=== PATIENT | female | born 1995 | race African-American/Black ===

== ENCOUNTER 2016-11-14 20:29 | Emergency (ER) | payer MEDICAID ==
--- NOTE | 2016-11-14 22:16 | ER Document Report ---
ED Skin Rash/Insect Bite/Abscs - General Mode of Arrival: Ambulatory Information source: Patient TRAVEL OUTSIDE OF THE [place] IN LAST 30 DAYS: No - General Chief Complaint: Wound Infection Stated Complaint: POSSIBLE BELLY BUTTON INFECTION Notes: Patient is a 21-year-old female who presents to the emergency department today with complaints of a bellybutton piercing infection. Patient states she got her belly butotn pierced on 09/23 and she has noticed white discharge from the area over the last few days. Patient states she has "used Dial soap as they told her too" but despite that, she believes it is infected. Patient denies any vomiting or fevers. (LILLI RODRIGUEZ) - Related Data Allergies/Adverse Reactions: No Known Allergies Allergy (Verified 08/24/15 08:46) Past Medical History - General Information source: Patient - Social History Smoking Status: Never Smoker Cigarette use (# per day): No Frequency of alcohol use: None Drug Abuse: None Lives with: Family Family History: Reviewed & Not Pertinent Patient has suicidal ideation: No Patient has homicidal ideation: No Psychiatric Medical History: Reports: Hx Bipolar Disorder, Hx Depression Surgical Hx: Negative - Immunizations Immunizations up to date: Yes Hx Diphtheria, Pertussis, Tetanus Vaccination: No - Medical History Notes: Hx of MR (LILLI RODRIGUEZ) Review of Systems - Review of Systems Constitutional: No symptoms reported EENT: No symptoms reported Cardiovascular: No symptoms reported Respiratory: No symptoms reported Gastrointestinal: No symptoms reported Genitourinary: No symptoms reported Female Genitourinary: No symptoms reported Musculoskeletal: No symptoms reported Skin: See HPI, Rash - around belly button piercing Hematologic/Lymphatic: No symptoms reported Neurological/Psychological: No symptoms reported -: Yes All other systems reviewed and negative Physical Exam - Vital signs Vitals: Temp Pulse Resp BP Pulse Ox 99.1 F 61 18 141/81 H 98 11/14/16 20:36 11/14/16 20:36 11/14/16 20:36 11/14/16 20:36 11/14/16 20:36 - Notes Notes: Physical Exam: General: Alert, appears well. HEENT: Normocephalic. Atraumatic. PERRLA. Extraocular movements intact. Oropharynx clear. Neck: Supple. Respiratory: No respiratory distress. Abdominal: Normal Inspection. No distension. Extremities: Moves all four extremities. Neurological: Cognition at baseline. AAOx4. Normal speech. Psychological: Normal affect. Normal Mood. Skin: Small opening at the umbilicus draining small amount of clear drainage. ( LILLI RODRIGUEZ) Course - Re-evaluation Re-evalutation: 11/15/16 03:45 Patient presents the emergency department after getting her bellybutton pierced last week. She said she took it out today because there is some drainage coming out of it. On examination she is afebrile well-appearing no acute abdominal guarding rebound rigidity she has a small area open at the umbilicus which is slightly draining clear drainage. There is no active abscess cellulitis crepitus necrosis hematoma or pus drainage. Went ahead and start her on Keflex told her to keep the ring out. Follow-up with the family doctor and discussed reasons for ED return sooner (SHELLEY RASHID) - Vital Signs Vital signs: Temp Pulse Resp BP Pulse Ox 98.7 F 68 16 127/86 H 100 11/14/16 22:38 11/14/16 22:38 11/14/16 22:38 11/14/16 22:38 11/14/16 22:38 Discharge - Discharge Clinical Impression: Infected bellybutton piercing Condition: Stable Disposition: HOME, SELF-CARE Additional Instructions: Cellulitis You have an infection of your skin and underlying soft tissues called cellulitis. This is due to bacteria, which can enter through any break in the skin, or even through an irritated hair follicle. Untreated, cellulitis will usually worsen. Antibiotics are required. Usually, warm packs or warm soaks, and elevation of the infected area are recommended. You should start getting better within 24 to 36 hours. Most infections respond quickly to the right medication. Follow-up care is important, however, to check for abscess (boil) formation, unsuspected foreign body, or resistant infection. If you develop fever, chills, or if the area of infection is becoming rapidly more swollen or painful, call the doctor at once. Prescriptions: Cephalexin Monohydrate [Keflex 250 mg Capsule] 250 mg PO Q8 #30 capsule Referrals: [facility] [Provider Group] - Follow up in 3-5 days Scribe Attestation: 11/14/16 22:32 I personally performed the services described in the documentation reviewed the documentation recorded by my scribe in my presence and it accurately and completely records my words and actions (SHELLEY RASHID) Scribe Documentation - Scribe Written by Rakan:: Rakan Church, 11/15/2016 0328 acting as scribe for :: Kem
[2016-11-14] MEDS ORDERED: CEPHALEXIN 500 MG CAPSULE PO ONE (22:33)
[2016-11-14 22:40] VITALS: BP 127/86
== END 2016-11-14 22:40 | disposition home or self-care (01) ==
LOC: ER 20:29
DX: L08.9 Local infection of the skin and subcutaneous tissue, unspecified (principal)
CPT/HCPCS: 99283

== ENCOUNTER 2017-01-15 10:13 | Emergency (ER) | payer MEDICAID ==
--- NOTE | 2017-01-15 11:14 | ER Document Report ---
ED Cardiac - General Mode of Arrival: Ambulatory Information source: Patient TRAVEL OUTSIDE OF THE [place] IN LAST 30 DAYS: No - HPI Patient complains to provider of: Chest pain, Other - racing heart Chest pain location: Substernal Quality of pain: Achy, Throbbing Chest pain radiation location: None Cardiac risk factors: Diabetes - pre-diabetic Associated symptoms: Other - see notes above <TOMA BLUE - Last Filed: 01/15/17 17:04> <ARLETTE FIORE - Last Filed: 01/15/17 21:45> - General Chief Complaint: Chest Tightness Stated Complaint: RAPID HEARTRATE Time Seen by Provider: 01/15/17 10:48 Notes: 21 year old female with history of pre-diabetes presents to the ED complaining of a racing heart that started at 0900 this morning. Patient additionally has throbbing and 'achy' sternal pain with shortness of breath that started towards the end of December 2016. Patient's caregiver explains that the patient has felt this way since getting her flu shot in December 2016. Patient also complains of rhinorrhea, but denies fever or vomiting. Patient denies any seasonal allergies. At this time, the patient explains that her heart is still racing, but not as badly as this morning. (TOMA BLUE) - Related Data Allergies/Adverse Reactions: No Known Allergies Allergy (Verified 01/15/17 10:24) Home Medications: Current Home Medications Fluoride (Sodium) [Prevident 5000 Plus] 51 gm DT BID 01/15/17 [History] Past Medical History - General Information source: Patient - Social History Smoking Status: Never Smoker Chew tobacco use (# tins/day): No Frequency of alcohol use: None Drug Abuse: None Family History: Reviewed & Not Pertinent Patient has suicidal ideation: No - Past Medical History Cardiac Medical History: Denies: Hx Coronary Artery Disease, Hx Heart Attack, Hx Hypertension Pulmonary Medical History: Denies: Hx Asthma, Hx Bronchitis, Hx COPD, Hx Pneumonia Neurological Medical History: Denies: Hx Cerebrovascular Accident, Hx Seizures Renal/ Medical History: Denies: Hx Peritoneal Dialysis Musculoskeltal Medical History: Denies Hx Arthritis Psychiatric Medical History: Reports: Hx Bipolar Disorder, Hx Depression Past Surgical History: Denies: Hx Hysterectomy - Immunizations Immunizations up to date: Yes Hx Diphtheria, Pertussis, Tetanus Vaccination: No <LUKE BLUEUR - Last Filed: 01/15/17 17:04> <ARLETTE FIORE - Last Filed: 01/15/17 21:45> - Medical History Notes: History of IDD. (BLUE,TOMA) Review of Systems - Review of Systems Constitutional: No symptoms reported. denies: Fever EENT: See HPI, Nose discharge Cardiovascular: See HPI, Chest pain - 'achy' sternal, Heart racing Respiratory: No symptoms reported Gastrointestinal: No symptoms reported. denies: Vomiting Genitourinary: No symptoms reported Female Genitourinary: No symptoms reported Musculoskeletal: No symptoms reported Skin: No symptoms reported Hematologic/Lymphatic: No symptoms reported Neurological/Psychological: No symptoms reported <BLUE,TOMA - Last Filed: 01/15/17 17:04> Physical Exam - General General appearance: Alert In distress: None - HEENT Head: Normocephalic, Atraumatic Eyes: Normal Extraocular movements intact: Yes Pupils: PERRL - Respiratory Respiratory status: No respiratory distress Chest status: Nontender Breath sounds: Normal Chest palpation: Normal - Cardiovascular Rhythm: Regular Heart sounds: Normal auscultation Murmur: No Friction rub: No Gallop: None auscultated - Extremities General upper extremity: Normal inspection, Normal ROM General lower extremity: Normal inspection, Normal ROM - Neurological Neuro grossly intact: Yes Cognition: Normal Orientation: AAOx4 [place] Coma Scale Eye Opening: Spontaneous [place] Coma Scale Verbal: Oriented Prabhakar Coma Scale Motor: Obeys Commands Prabhakar Coma Scale Total: 15 Speech: Normal - Psychological Associated symptoms: Normal affect, Normal mood - Skin Skin Temperature: Warm Skin Moisture: Dry Skin Color: Normal <BLUE,TOMA - Last Filed: 01/15/17 17:04> - Vital signs Vitals: Temp Pulse Resp BP Pulse Ox 98.8 F 63 18 127/81 H 100 01/15/17 10:24 01/15/17 10:24 01/15/17 10:24 01/15/17 10:24 01/15/17 10:24 Course - Laboratory Result Diagrams: 01/15/17 11:35 01/15/17 11:35 <BLUETOMA - Last Filed: 01/15/17 17:04> - Laboratory Result Diagrams: 01/15/17 11:35 01/15/17 11:35 <ARLETTE FIORE - Last Filed: 01/15/17 21:45> - Re-evaluation Re-evalutation: 01/15/17 12:24 CBC shows mild anemia with hemoglobin 11.0, this is normal demonstrating female , CMP grossly unremarkable only slightly elevated sodium 146.3, test is negative, lithium level therapeutic at 0.9, EKG nonischemic, no tachycardia. Discussed with patient the need for a Holter monitor as an outpatient, no further testing indicated today, very low suspicion for pulmonary embolism or tachybradycardia syndrome. Patient is discharged home with referral to outpatient cardiology for Holter monitor. (ARLETTE FIORE) - Vital Signs Vital signs: Temp Pulse Resp BP Pulse Ox 98.5 F 69 18 140/88 H 100 01/15/17 12:50 01/15/17 12:50 01/15/17 10:24 01/15/17 12:50 01/15/17 12:50 - Laboratory Laboratory results interpreted by me: 01/15/17 01/15/17 11:35 11:35 Hgb 11.0 L Hct 34.3 L RDW 14.8 H Sodium 146.3 H - EKG Interpretation by Me Additional EKG results interpreted by me: 01/15/17 12:29 EKG shows sinus bradycardia at a rate of 54, normal axis, normal intervals, no ST segment elevations or depressions, no T-wave inversions, no evidence of Brugada syndrome per my interpretation. (ARLETTE FIORE) Discharge <TOMA BLUE - Last Filed: 01/15/17 17:04> <ARLETTE FIORE - Last Filed: 01/15/17 21:45> - Discharge Clinical Impression: Palpitations, Hypertension Condition: Stable Disposition: HOME, SELF-CARE Additional Instructions: Today your EKG was normal, there was no evidence of heartbeat that was too rapid. You also felt like her heartbeat had normalized by the time I saw you. It is very important that you follow-up with [facility] as an outpatient, they may wish to start you on a Holter monitor. This is a 24-48 hour monitor that will watch her heart rate all day, they will have a better chance of catching and irregular heartbeat. Your lithium level was normal. You are not . Please return to the emergency department for any new or concerning symptoms. Forms: Elevated Blood Pressure Referrals: KELLY CAMPOS MD [ACTIVE STAFF] - Follow up as needed Scribe Attestation: 01/15/17 21:44 I personally performed the services described in the documentation, reviewed and edited the documentation which was dictated to the scribe in my presence, and it accurately records my words and actions. (ARLETTE FIORE) Scribe Documentation - Scribe Written by Scribe:: Rakan Borges, 01/15/2017 1210 acting as scribe for :: Ariana <TOMA BLUE - Last Filed: 01/15/17 17:04>
[2017-01-15 11:51] LABS: ABSOLUTE MONOCYTES (AUTO) 0.3 10^3/uL (0.1-1.4); ABSOLUTE NEUT (AUTO) 3.4 10^3/uL (1.7-8.2); BASOPHILS % (AUTO) 0.4 % (0-2); EOSINOPHILS % (AUTO) 0.1 % (0-6); HEMATOCRIT 34.3 % (36.0-47.0); HGB HCT DIFFERENCE -1.3; LYMPHOCYTES % (AUTO) 34.7 % (13-45); MEAN CORPUSCULAR HEMOGLOBIN 27.2 pg (27.0-33.4); MEAN CORPUSCULAR VOLUME 85 fl (80-97); MONOCYTES % (AUTO) 5.9 % (3-13); RED BLOOD COUNT 4.03 10^6/uL (3.72-5.28); RED CELL DISTRIBUTION WIDTH 14.8 % (11.5-14.0); SEGMENTED NEUTROPHILS % (AUTO) 58.9 % (42-78); WHITE BLOOD COUNT 5.8 10^3/uL (4.0-10.5)
[2017-01-15 12:17] LABS: ALANINE AMINOTRANSFERASE 26 U/L (9-52); ALKALINE PHOSPHATASE 88 U/L (38-126); ANION GAP 12 (5-19); ASPARTATE AMINO TRANSFERASE 21 U/L (14-36); BILIRUBIN,DIRECT 0.3 mg/dL (0.0-0.4); BILIRUBIN,TOTAL 0.3 mg/dL (0.2-1.3); BLOOD UREA NITROGEN 8 mg/dL (7-20); CARBON DIOXIDE 28 mmol/L (22-30); CHLORIDE 106 mmol/L (98-107); CREATININE RESULT 0.87 mg/dL (0.52-1.25); GLUCOSE 80 mg/dL (75-110); LITHIUM 0.9 mEq/L (0.6-1.2); POTASSIUM 4.2 mmol/L (3.6-5.0); SODIUM 146.3 mmol/L (137-145); TOTAL PROTEIN 7.2 g/dL (6.3-8.2)
[2017-01-15 12:52] VITALS: BP 140/88
--- NOTE | 2017-01-15 19:47 | EKG REPORT ---
SEVERITY:- NORMAL ECG - SINUS RHYTHM : Confirmed by: Mateusz Olmedo MD 15-Jan-2017 19:46:32
== END 2017-01-15 12:52 | disposition home or self-care (01) ==
LOC: ER 10:13
DX: R00.2 Palpitations (principal); I10 Essential (primary) hypertension; D64.9 Anemia, unspecified; R07.89 Other chest pain; R00.1 Bradycardia, unspecified; R06.02 Shortness of breath; J34.89 Other specified disorders of nose and nasal sinuses
CPT/HCPCS: 36415; 80053; 80178; 84703; 85025; 93005; 93010; 99285

== ENCOUNTER 2017-02-27 13:50 | Emergency (ER) | payer MEDICAID ==
--- NOTE | 2017-02-27 15:00 | ER Document Report ---
ED GI/ - General Chief Complaint: Vaginal Itching Stated Complaint: VAGINAL ITCHING Time Seen by Provider: 02/27/17 14:52 Notes: Patient is a 21-year-old female presents emergency department complaining of vaginal discharge. Patient states that she is sexually active but that she does use protection. Patient states that she is not on control and uses condoms. Patient states that her symptoms started on February 20 as vaginal itching, burning with white discharge. She denies any history of STDs. Otherwise states that she does not think she is . Otherwise denies any history of endometriosis, ovarian cysts. TRAVEL OUTSIDE OF THE [place] IN LAST 30 DAYS: No - Related Data Allergies/Adverse Reactions: No Known Allergies Allergy (Verified 02/27/17 13:56) Past Medical History - Social History Smoking Status: Smoker,Current Status Unk Family History: Reviewed & Not Pertinent - Past Medical History Cardiac Medical History: Denies: Hx Coronary Artery Disease, Hx Heart Attack, Hx Hypertension Pulmonary Medical History: Denies: Hx Asthma, Hx Bronchitis, Hx COPD, Hx Pneumonia Neurological Medical History: Denies: Hx Cerebrovascular Accident, Hx Seizures Renal/ Medical History: Denies: Hx Peritoneal Dialysis Musculoskeltal Medical History: Denies Hx Arthritis Psychiatric Medical History: Reports: Hx Bipolar Disorder, Hx Depression Past Surgical History: Denies: Hx Hysterectomy - Immunizations Immunizations up to date: Yes Hx Diphtheria, Pertussis, Tetanus Vaccination: No Review of Systems - Review of Systems Constitutional: No symptoms reported Cardiovascular: No symptoms reported Respiratory: No symptoms reported Gastrointestinal: No symptoms reported Female Genitourinary: See HPI -: Yes All other systems reviewed and negative Physical Exam - Vital signs Vitals: Temp Pulse Resp BP Pulse Ox 98.4 F 68 18 137/79 H 100 02/27/17 13:57 02/27/17 13:57 02/27/17 13:57 02/27/17 13:57 02/27/17 13:57 - Notes Notes: PHYSICAL EXAM GENERAL: Alert, interacts well. HEAD: Normocephalic, atraumatic. ABDOMEN: Soft, nondistended, nontender. No guarding, rebound, or rigidity.. Bowel sounds present in all 4 quadrants. FEMALE : Normal external exam. No evidence of lesions, lacerations, bruising or vesicles. Speculum exam normal cervix closed. Small amount of white discharge noted around the cervix but without odor. No evidence of lesions. No vaginal bleeding. Bimanual exam normal no cervical motion tenderness. No adnexal mass or adnexal tenderness. NEUROLOGICAL: Alert and oriented x4. Normal speech. PSYCH: Normal affect, normal mood. SKIN: Warm, dry, normal turgor. No rashes or lesions noted. Course - Re-evaluation Re-evalutation: 02/27/17 16:23 Patient is a 21-year-old female who is hemodynamically stable, no acute distress and afebrile. Considering patient is sexually active with vaginal discharge and concern for STD, patient was treated prophylactically for chlamydia and gonorrhea. Otherwise low clinical suspicion for pelvic inflammatory disease, ovarian cyst, pelvic abscess. Patient discharged home with instruction to follow-up with [facility] if symptoms persist otherwise educated on abstaining from sexual intercourse. Patient agrees with plan - Vital Signs Vital signs: Temp Pulse Resp BP Pulse Ox 97.6 F 67 20 129/89 H 100 02/27/17 17:27 02/27/17 17:27 02/27/17 17:27 02/27/17 17:27 02/27/17 17:27 Discharge - Discharge Clinical Impression: Vaginal pain Condition: Good Disposition: HOME, SELF-CARE Additional Instructions: You need to use protection every time you have sex. Failure to do so can result in transmission of infections or unintended . You have been treated for an sexually transmitted infection (STI) today. All of your partners should be tested and treated as they are also likely to be infected. Please return if you develop abdominal pain, fever, persistent vomiting, or any other symptoms that are concerning to you. If you tested positive for chlamydia and gonorrhea I will call and leave a voicemail for the number provided today. Otherwise if you do not receive a phone call if tested negative. Referrals: WOLF JOSEPH DO [Primary Care Provider] - Follow up as needed [facility] [Provider Group] - Follow up as needed
[2017-02-27 16:05] LABS: APPEARANCE,URINE CLEAR; BILIRUBIN,URINE NEGATIVE (NEGATIVE); GLUCOSE, URINE NEGATIVE (NEGATIVE); KETONES,URINE NEGATIVE (NEGATIVE); LEUKOCYTE ESTERASE,URINE NEGATIVE (NEGATIVE); NITRITE,URINE NEGATIVE (NEGATIVE); PROTEIN,URINE NEGATIVE (NEGATIVE); URINE SPECIFIC GRAVITY 1.009; UROBILINOGEN,URINE NEGATIVE mg/dL (<2.0)
[2017-02-27] MEDS ORDERED: AZITHROMYCIN 1 GM SUSP PACKET PO ONE (16:32)
[2017-02-27] MEDS ORDERED: CEFTRIAXONE INJ 250 MG VIAL IM ONE (16:32)
[2017-02-27] MEDS ORDERED: LIDOCAINE 1% INJ-PF (10 MG/ML) 30 ML SDV INJ ONE (16:32)
[2017-02-27 17:28] VITALS: BP 129/89
[2017-02-27 17:31] LABS: CHLAM PCR NOT DETECTED (NOT DETECT)
== END 2017-02-27 17:28 | disposition home or self-care (01) ==
LOC: ER 13:50
DX: R10.2 Pelvic and perineal pain (principal); L29.2 Pruritus vulvae; F17.200 Nicotine dependence, unspecified, uncomplicated
CPT/HCPCS: 99283; 96372; 87210; 81025; 81001; 87491; 87591; J3490; Q0144; J0696

== ENCOUNTER 2018-05-18 15:19 | Emergency (ER) | payer MEDICAID ==
[2018-05-18 15:28] VITALS: BP 136/73
--- NOTE | 2018-05-18 16:04 | ER Document Report ---
ED Medical Screen (RME) - General Chief Complaint: Abscess Stated Complaint: POSSIBLE ABSCESS Time Seen by Provider: 05/18/18 16:00 Primary Care Provider: WOLF JOSEPH DO [Primary Care Provider] - Follow up as needed Notes: 22 years old female with no significant past medical history presents with perianal abscess. And pain. TRAVEL OUTSIDE OF THE [place] IN LAST 30 DAYS: No - Related Data Allergies/Adverse Reactions: No Known Allergies Allergy (Verified 02/27/17 13:56) Past Medical History - Past Medical History Cardiac Medical History: Denies: Hx Coronary Artery Disease, Hx Heart Attack, Hx Hypertension Pulmonary Medical History: Denies: Hx Asthma, Hx Bronchitis, Hx COPD, Hx Pneumonia Neurological Medical History: Denies: Hx Cerebrovascular Accident, Hx Seizures Renal/ Medical History: Denies: Hx Peritoneal Dialysis Musculoskeltal Medical History: Denies Hx Arthritis Psychiatric Medical History: Reports: Hx Bipolar Disorder, Hx Depression Past Surgical History: Denies: Hx Hysterectomy - Immunizations Immunizations up to date: Yes Hx Diphtheria, Pertussis, Tetanus Vaccination: No Physical Exam - Vital signs Vitals: Temp Pulse Resp BP Pulse Ox 99.0 F 94 14 136/73 H 100 05/18/18 15:27 05/18/18 15:27 05/18/18 15:27 05/18/18 15:27 05/18/18 15:27 Course - Vital Signs Vital signs: Temp Pulse Resp BP Pulse Ox 99.0 F 94 14 136/73 H 100 05/18/18 15:27 05/18/18 15:27 05/18/18 15:27 05/18/18 15:27 05/18/18 15:27 Doctor's Discharge - Discharge Referrals: WOLF JOSEPH DO [Primary Care Provider] - Follow up as needed
== END 2018-05-18 19:37 | disposition left against medical advice (07) ==
LOC: ER 15:19
DX: K61.0 Anal abscess (principal); Z53.20 Procedure and treatment not carried out because of patient's decision for unspecified reasons
CPT/HCPCS: 99281

== ENCOUNTER 2018-05-19 03:51 | Emergency (ER) | payer MEDICAID ==
[2018-05-19] MEDS ORDERED: MORPHINE SULFATE 10 MG/ML INJ IV ONE (04:07)
[2018-05-19] MEDS ORDERED: ONDANSETRON HCL INJ/PF 4 MG/2 ML SDV IV ONE (04:07)
[2018-05-19 04:08] LABS: ABSOLUTE BASOPHILS # (AUTO) 0.1 10^3/uL (0.0-0.2); ABSOLUTE LYMPHOCYTES (AUTO) 1.9 10^3/uL (0.5-4.7); ABSOLUTE MONOCYTES (AUTO) 0.6 10^3/uL (0.1-1.4); ABSOLUTE NEUT (AUTO) 6.7 10^3/uL (1.7-8.2); BASOPHILS % (AUTO) 0.6 % (0-2); EOSINOPHILS % (AUTO) 0.4 % (0-6); HEMATOCRIT 29.8 % (36.0-47.0); HEMOGLOBIN 9.8 g/dL (12.0-15.5); LYMPHOCYTES % (AUTO) 20.4 % (13-45); MEAN CORPUSCULAR HEMOGLOBIN 26.4 pg (27.0-33.4); MEAN CORPUSCULAR HGB CONC 32.9 g/dL (32.0-36.0); MEAN CORPUSCULAR VOLUME 80 fl (80-97); MONOCYTES % (AUTO) 6.6 % (3-13); PLATELET COUNT 291 10^3/uL (150-450); RED BLOOD COUNT 3.72 10^6/uL (3.72-5.28); RED CELL DISTRIBUTION WIDTH 14.8 % (11.5-14.0); TOTAL CELLS COUNTED % (AUTO) 100 %; WHITE BLOOD COUNT 9.3 10^3/uL (4.0-10.5)
--- NOTE | 2018-05-19 04:09 | ER Document Report ---
ED General - General Stated Complaint: ABDOMINAL PAIN Time Seen by Provider: 05/19/18 04:00 Primary Care Provider: BERNABE FERGUSON MD [ACTIVE STAFF] - Follow up in 3-5 days WOLF JOSEPH DO [Primary Care Provider] - Follow up as needed Mode of Arrival: Medic Information source: Patient, [facility] Records Notes: 22-year-old female with PTSD, bipolar disorder presents with complaint of right upper quadrant abdominal pain that started 7 hours prior to arrival while at rest. Patient describes the pain as sharp, intermittent and not associated with any nausea, vomiting or diarrhea. Patient reports AN ultrasound performed 1 year ago which showed that the patient had gallstones. She denies any recent illness, travel, antibiotic use or sick contacts. Her last menstrual period was April 18, 2018. She is sexually active but denies any vaginal discharge, dysuria, hematuria. TRAVEL OUTSIDE OF THE [place] IN LAST 30 DAYS: No - HPI Onset: Just prior to arrival Onset/Duration: Sudden, Persistent Quality of pain: Sharp, Stabbing Severity: Moderate Associated symptoms: denies: Chest pain, Productive cough, Fever, Nausea, Vomiting, Shortness of breath Exacerbated by: Denies Relieved by: Denies Similar symptoms previously: Yes Recently seen / treated by doctor: Yes - Related Data Allergies/Adverse Reactions: No Known Allergies Allergy (Verified 05/18/18 16:10) Past Medical History - General Information source: Patient, [facility] Records - Social History Smoking Status: Never Smoker Frequency of alcohol use: None Drug Abuse: None Lives with: Family Family History: Reviewed & Not Pertinent - Past Medical History Cardiac Medical History: Denies: Hx Coronary Artery Disease, Hx Heart Attack, Hx Hypertension Pulmonary Medical History: Denies: Hx Asthma, Hx Bronchitis, Hx COPD, Hx Pneumonia Neurological Medical History: Denies: Hx Cerebrovascular Accident, Hx Seizures Renal/ Medical History: Denies: Hx Peritoneal Dialysis Musculoskeletal Medical History: Denies Hx Arthritis Psychiatric Medical History: Reports: Hx Bipolar Disorder, Hx Depression Past Surgical History: Denies: Hx Hysterectomy - Immunizations Immunizations up to date: Yes Hx Diphtheria, Pertussis, Tetanus Vaccination: No Review of Systems - Review of Systems Notes: REVIEW OF SYSTEMS: CONSTITUTIONAL : Denies fever, chills, or sweats. Denies recent illness. Denies weight loss, recent hospitalizations. EENT: Denies visual changes, eye pain. Denies sore throat, oral lesions, difficulty swallowing. CARDIOVASCULAR: Denies chest pain. Denies palpitations. Denies lower extremity edema. RESPIRATORY: Denies cough. Denies shortness of breath, wheezing. GASTROINTESTINAL: Denies abdominal distention. Denies nausea, vomiting, or diarrhea. Denies blood in vomitus, stools, or per rectum. Denies black, tarry stools. Denies constipation. GENITOURINARY: Denies difficulty urinating, painful urination, frequency, blood in urine, or vaginal discharge. MUSCULOSKELETAL: Denies back or neck pain or stiffness. Denies joint pain or swelling. SKIN: Denies rash, lesions or sores. HEMATOLOGIC : Denies easy bruising or bleeding. LYMPHATIC: Denies swollen glands. NEUROLOGICAL: Denies confusion or altered mental status. Denies loss of consciousness. Denies dizziness or lightheadedness. Denies headache. Denies weakness or paralysis. Denies problems difficulty with ambulation, slurred speech. Denies sensory loss, numbness, or tingling. Denies seizures. PSYCHIATRIC: Denies anxiety or stress. Denies depression, suicidal ideation, or homicidal ideation. Denies visual or auditory hallucinations. Physical Exam - Vital signs Vitals: Temp Pulse Resp BP Pulse Ox 98.8 F 93 16 134/79 H 98 05/19/18 03:58 05/19/18 03:58 05/19/18 03:58 05/19/18 03:58 05/19/18 03:58 - Notes Notes: PHYSICAL EXAMINATION: GENERAL: Well-appearing, well-nourished and in no acute distress. HEAD: Atraumatic, normocephalic. EYES: Pupils equal round and reactive to light, extraocular movements intact, conjunctiva are normal. ENT: Nares patent, oropharynx clear without exudates. Moist mucous membranes. NECK: Normal range of motion, supple without lymphadenopathy LUNGS: Breath sounds clear to auscultation bilaterally and equal. No wheezes rales or rhonchi. HEART: Regular rate and rhythm without murmurs ABDOMEN: Epigastric abdominal pain with palpation. No guarding, no rebound. No masses appreciated. Female : deferred Musculoskeletal: Normal range of motion, no pitting or edema. No cyanosis. NEUROLOGICAL: Cranial nerves grossly intact. Normal speech, normal gait. Normal sensory, motor exams PSYCH: Normal mood, normal affect. SKIN: Warm, Dry, normal turgor, no rashes or lesions noted. Course - Re-evaluation Re-evalutation: Temp Pulse Resp BP Pulse Ox 98.8 F 93 16 134/79 H 98 05/19/18 03:58 05/19/18 03:58 05/19/18 03:58 05/19/18 03:58 05/19/18 03:58 Laboratory 05/19/18 05/19/18 05/19/18 04:00 04:00 04:20 WBC 9.3 RBC 3.72 Hgb 9.8 L Hct 29.8 L MCV 80 MCH 26.4 L MCHC 32.9 RDW 14.8 H Plt Count 291 Seg Neutrophils % 72.0 Lymphocytes % 20.4 Monocytes % 6.6 Eosinophils % 0.4 Basophils % 0.6 Absolute Neutrophils 6.7 Absolute Lymphocytes 1.9 Absolute Monocytes 0.6 Absolute Eosinophils 0.0 Absolute Basophils 0.1 Sodium 138.7 Potassium 4.1 Chloride 107 Carbon Dioxide 24 Anion Gap 8 BUN 16 Creatinine 0.63 Est GFR ( Amer) > 60 Est GFR (Non-Af Amer) > 60 Glucose 104 Calcium 8.7 Total Bilirubin 0.4 Direct Bilirubin 0.3 Neonat Total Bilirubin Not Reportable Neonat Direct Bilirubin Not Reportable Neonat Indirect Bili Not Reportable AST 23 ALT < 6 L Alkaline Phosphatase 64 Total Protein 7.5 Albumin 4.0 Lipase 91.1 Urine Color YELLOW Urine Appearance CLEAR Urine pH 7.0 Ur Specific [place] 1.018 Urine Protein NEGATIVE Urine Glucose (UA) NEGATIVE Urine Ketones NEGATIVE Urine Blood NEGATIVE Urine Nitrite NEGATIVE Urine Bilirubin NEGATIVE Urine Urobilinogen 4.0 H Ur Leukocyte Esterase NEGATIVE Urine WBC (Auto) 2 Urine RBC (Auto) 0 Squamous Epi Cells Auto 2 Urine Mucus (Auto) OCC Urine Ascorbic Acid 40 H Urine HCG, Qual NEGATIVE Abdomen Ultrasound 05/19/18 04:06 IMPRESSION: Cholelithiasis. Fatty liver. copyright 2011 [employer]- All Rights Reserved Temp Pulse Resp BP Pulse Ox 98.8 F 93 16 134/79 H 98 05/19/18 03:58 05/19/18 03:58 05/19/18 03:58 05/19/18 03:58 05/19/18 03:58 05/19/18 04:08 22-year-old female with known gallbladder disease presents with right upper quadrant and epigastric abdominal pain that started 5 hours prior to arrival. Vital signs reviewed and within normal limits. Patient does not appear toxic or dehydrated. She is in no acute distress. Exam is significant for epigastric and right upper quadrant abdominal pain with palpation. Previous medical records and nursing notes reviewed. Patient was given IV fluids, Zofran, morphine. Right upper quadrant ultrasound pending. 05/19/18 05:00 Right upper quadrant ultrasound was obtained and significant for fatty liver, cholelithiasis without evidence of cholecystitis. CBC, CMP, lipase and urinalysis are all within normal limits. Patient was provided outpatient surgery referral. Diet discussed. Patient tolerating p.o. Patient was evaluated and treated as appropriate for the patient's presenting symptoms and complaint, with consideration of any critical or life threatening conditions that may be associated with their obtained history and exam as noted above. All results were discussed with patient. Patient provided the opportunity to ask questions, and express concerns. Patient was educated on treatments based on their presumed diagnosis as noted above. At this time we will discharge the patient with return precautions and follow-up recommendations. Verbal discharge instructions given a the bedside. Medication warnings reviewed. Patient is in agreement with this plan and has verbalized understanding of return precautions. After careful consideration I feel that that patient can be safely discharged from the emergency department, they were advised to followup with a primary care physician in 2-3 days. Dictation on this chart was performed using voice recognition software and may result in unintended grammatical, spelling, syntax or errors. 05/19/18 05:36 - Vital Signs Vital signs: Temp Pulse Resp BP Pulse Ox 98.8 F 93 16 134/79 H 98 05/19/18 03:58 05/19/18 03:58 05/19/18 03:58 05/19/18 03:58 05/19/18 03:58 - Laboratory Result Diagrams: 05/19/18 04:00 05/19/18 04:00 Laboratory results interpreted by me: 05/19/18 05/19/18 05/19/18 04:00 04:00 04:20 Hgb 9.8 L Hct 29.8 L MCH 26.4 L RDW 14.8 H ALT < 6 L Urine Urobilinogen 4.0 H Urine Ascorbic Acid 40 H - Diagnostic Test Radiology reviewed: Image reviewed, Reports reviewed Discharge - Discharge Clinical Impression: Elevated blood pressure reading Cholelithiasis Qualifiers: Cholelithiasis location: gallbladder Cholecystitis presence: without cholecysti tis Biliary obstruction: without biliary obstruction Qualified Code(s): K80.20 - Calculus of gallbladder without cholecystitis without obstruction Abdominal pain Qualifiers: Abdominal location: right upper quadrant Qualified Code(s): R10.11 - Right upper quadrant pain Condition: Good Disposition: HOME, SELF-CARE Instructions: Abdominal Pain ([facility]), Gallbladder Disease ([facility]) Additional Instructions: You were seen for pain in your abdomen that is likely related to gallstones. Your work-up today does not show any signs that you need to have your gallbladder removed tonight. However, you will likely need surgery as an outpatient in the coming weeks. Please contact the surgery clinic in the next 24-48 hours to discuss the need for further evaluation and consideration of surgery. Return to the ED immediately if you develop worsening pain, persistent vomiting, become unable to tolerate fluids, have a fever of >1004, or any other symptoms that are concerning to you. Prescriptions: Hydrocodone/Acetaminophen [[place] 5-325 mg Tablet] 1 tab PO Q6H #10 tablet Forms: Elevated Blood Pressure Referrals: WOLF JOSEPH DO [Primary Care Provider] - Follow up as needed BERNABE FERGUSON MD [ACTIVE STAFF] - Follow up in 3-5 days
[2018-05-19 04:25] LABS: ALANINE AMINOTRANSFERASE < 6 U/L (9-52); ALKALINE PHOSPHATASE 64 U/L (38-126); ANION GAP 8 (5-19); ASPARTATE AMINO TRANSFERASE 23 U/L (14-36); BILIRUBIN,DIRECT 0.3 mg/dL (0.0-0.4); BILIRUBIN,TOTAL 0.4 mg/dL (0.2-1.3); BLOOD UREA NITROGEN 16 mg/dL (7-20); CALCIUM 8.7 mg/dL (8.4-10.2); CARBON DIOXIDE 24 mmol/L (22-30); CHLORIDE 107 mmol/L (98-107); GLUCOSE 104 mg/dL (75-110); LIPASE 91.1 U/L (23-300); POTASSIUM 4.1 mmol/L (3.6-5.0); SODIUM 138.7 mmol/L (137-145); TOTAL PROTEIN 7.5 g/dL (6.3-8.2)
[2018-05-19 04:38] LABS: APPEARANCE,URINE CLEAR; BILIRUBIN,URINE NEGATIVE (NEGATIVE); COLOR,URINE YELLOW; GLUCOSE, URINE NEGATIVE (NEGATIVE); KETONES,URINE NEGATIVE (NEGATIVE); LEUKOCYTE ESTERASE,URINE NEGATIVE (NEGATIVE); NITRITE,URINE NEGATIVE (NEGATIVE); PROTEIN,URINE NEGATIVE (NEGATIVE); URINE SPECIFIC GRAVITY 1.018
--- NOTE | 2018-05-19 04:47 | RADIOLOGY REPORT (SQ) ---
EXAM DESCRIPTION: US ABDOMEN LIMITED COMPLETED DATE/TME: 05/19/2018 04:06 CLINICAL HISTORY: 22 years, Female, pain COMPARISON: None. TECHNIQUE: Grayscale and Doppler images of the abdomen LIMITATIONS: None. FINDINGS: The visualized portions of the pancreas, aorta, and IVC appear unremarkable. The liver demonstrates increased echotexture and measures 13.6 cm. The main portal vein demonstrates normal hepatopedal flow. Cholelithiasis is noted. There is no wall thickening or pericholecystic fluid. No sonographic Barks[place] sign was elicited. The common bile duct is normal in caliber measuring up to 0.1 cm in diameter. The right kidney measures 8.9 x 3.8 x 6.0 cm. No hydronephrosis. IMPRESSION: Cholelithiasis. Fatty liver. copyright 2010 [employer]- All Rights Reserved
[2018-05-19 05:42] VITALS: BP 117/64
== END 2018-05-19 05:49 | disposition home or self-care (01) ==
LOC: ER 03:51
DX: K80.20 Calculus of gallbladder without cholecystitis without obstruction (principal); R10.11 Right upper quadrant pain; R03.0 Elevated blood-pressure reading, without diagnosis of hypertension
CPT/HCPCS: 99284; 96374; 96375; 36415; 83690; 85025; 81025; 80053; 81001; 76705; J2270; J2405

== ENCOUNTER 2018-06-27 14:11 | Emergency (ER) | payer MEDICAID ==
[2018-06-27] MEDS ORDERED: NORMAL SALINE 1000 ML 1,000 ML IV ONE ×2 (15:16)
[2018-06-27] MEDS ORDERED: ONDANSETRON HCL INJ/PF 4 MG/2 ML SDV IV ONE (15:17)
--- NOTE | 2018-06-27 15:18 | ER Document Report ---
ED Medical Screen (RME) - General Chief Complaint: Nausea/Vomiting Stated Complaint: ABDOMINAL PAIN, VOMITING Time Seen by Provider: 06/27/18 15:13 Primary Care Provider: WOLF JOSEPH DO [Primary Care Provider] - Follow up as needed TRAVEL OUTSIDE OF THE [place] IN LAST 30 DAYS: No - HPI Notes: 06/27/18 15:17 History of gallstones coming in for right upper quadrant pain last p.o. intake this morning around 730 patient states she had cereal and water which caused her to have nausea and vomiting. - Related Data Allergies/Adverse Reactions: No Known Allergies Allergy (Verified 06/27/18 14:12) Past Medical History - Social History Chew tobacco use (# tins/day): No Drug Abuse: None - Past Medical History Cardiac Medical History: Denies: Hx Coronary Artery Disease, Hx Heart Attack, Hx Hypertension Pulmonary Medical History: Denies: Hx Asthma, Hx Bronchitis, Hx COPD, Hx Pneumonia Neurological Medical History: Denies: Hx Cerebrovascular Accident, Hx Seizures Renal/ Medical History: Denies: Hx Peritoneal Dialysis Musculoskeltal Medical History: Denies Hx Arthritis Psychiatric Medical History: Reports: Hx Bipolar Disorder, Hx Depression Past Surgical History: Denies: Hx Hysterectomy - Immunizations Immunizations up to date: Yes Hx Diphtheria, Pertussis, Tetanus Vaccination: No Review of Systems - Review of Systems Gastrointestinal: Abdominal pain Physical Exam - Vital signs Vitals: Temp Pulse Resp BP Pulse Ox 98.6 F 79 16 132/86 H 100 06/27/18 14:17 06/27/18 14:17 06/27/18 14:17 06/27/18 14:17 06/27/18 14:17 - Respiratory Respiratory status: No respiratory distress Chest status: Nontender Breath sounds: Normal Chest palpation: Normal - Abdominal Inspection: Normal Distension: No distension Organomegaly: No organomegaly Course - Vital Signs Vital signs: Temp Pulse Resp BP Pulse Ox 98.6 F 79 16 132/86 H 100 06/27/18 14:17 06/27/18 14:17 06/27/18 14:17 06/27/18 14:17 06/27/18 14:17 Doctor's Discharge - Discharge Referrals: WOLF JOSEPH DO [Primary Care Provider] - Follow up as needed
[2018-06-27 15:52] LABS: APPEARANCE,URINE CLEAR; BILIRUBIN,URINE NEGATIVE (NEGATIVE); COLOR,URINE YELLOW; GLUCOSE, URINE NEGATIVE (NEGATIVE); KETONES,URINE NEGATIVE (NEGATIVE); LEUKOCYTE ESTERASE,URINE NEGATIVE (NEGATIVE); NITRITE,URINE NEGATIVE (NEGATIVE); PROTEIN,URINE NEGATIVE (NEGATIVE); URINE SPECIFIC GRAVITY 1.019
[2018-06-27 15:54] LABS: ABSOLUTE LYMPHOCYTES (AUTO) 1.6 10^3/uL (0.5-4.7); ABSOLUTE MONOCYTES (AUTO) 0.3 10^3/uL (0.1-1.4); ABSOLUTE NEUT (AUTO) 3.3 10^3/uL (1.7-8.2); BASOPHILS % (AUTO) 0.9 % (0-2); EOSINOPHILS % (AUTO) 0.6 % (0-6); HEMATOCRIT 35.6 % (36.0-47.0); HEMOGLOBIN 11.4 g/dL (12.0-15.5); LYMPHOCYTES % (AUTO) 31.2 % (13-45); MEAN CORPUSCULAR VOLUME 81 fl (80-97); MONOCYTES % (AUTO) 5.4 % (3-13); PLATELET COUNT 316 10^3/uL (150-450); RED BLOOD COUNT 4.38 10^6/uL (3.72-5.28); RED CELL DISTRIBUTION WIDTH 15.8 % (11.5-14.0); SEGMENTED NEUTROPHILS % (AUTO) 61.9 % (42-78); TOTAL CELLS COUNTED % (AUTO) 100 %; WHITE BLOOD COUNT 5.2 10^3/uL (4.0-10.5)
[2018-06-27 16:05] LABS: ALANINE AMINOTRANSFERASE 22 U/L (9-52); ALBUMIN 4.1 g/dL (3.5-5.0); ALKALINE PHOSPHATASE 86 U/L (38-126); ANION GAP 8 (5-19); ASPARTATE AMINO TRANSFERASE 20 U/L (14-36); BILIRUBIN,DIRECT 0.1 mg/dL (0.0-0.4); BILIRUBIN,TOTAL 0.3 mg/dL (0.2-1.3); BLOOD UREA NITROGEN 16 mg/dL (7-20); CALCIUM 9.6 mg/dL (8.4-10.2); CARBON DIOXIDE 28 mmol/L (22-30); CHLORIDE 103 mmol/L (98-107); GLUCOSE 88 mg/dL (75-110); LIPASE 153.5 U/L (23-300); POTASSIUM 4.1 mmol/L (3.6-5.0); SODIUM 138.5 mmol/L (137-145); TOTAL PROTEIN 7.9 g/dL (6.3-8.2)
--- NOTE | 2018-06-27 16:15 | RADIOLOGY REPORT (SQ) ---
EXAM DESCRIPTION: U/S ABDOMEN LIMITED W/O DOP COMPLETED DATE/TIME: 06/27/2018 4:01 pm REASON FOR STUDY: ruq pain COMPARISON: 05/19/2018. TECHNIQUE: Dynamic and static grayscale images acquired of the abdomen and recorded on PACS. Additio nal selected color Doppler and spectral images recorded. LIMITATIONS: Limiting bowel gas with associated acoustical interference. FINDINGS: PANCREAS: Not seen. LIVER: No masses. Echotexture normal. LIVER VASCULATURE: Normal directional flow of the main portal vein and hepatic veins. GALLBLADDER: Gallstones. No wall thickening or pericholecystic fluid. ULTRASOUND-DETECTED FROST'S SIGN: Negative. INTRAHEPATIC DUCTS AND COMMON DUCT: CBD and intrahepatic ducts normal caliber. No filling defects. INFERIOR VENA CAVA: Normal flow. AORTA: No aneurysm. RIGHT KIDNEY: Normal size. Normal echogenicity. No solid or suspicious masses. No hydronephrosis. No calcifications. PERITONEAL AND RIGHT PLEURAL SPACE: No ascites or effusions. OTHER: No other significant findings. IMPRESSION: 1. Cholelithiasis without ultrasound evidence of acute cholecystitis. TECHNICAL DOCUMENTATION: JOB ID: [id number] [employer]- All Rights Reserved Reading location - IP/workstation name: [email or web address]
[2018-06-27] MEDS ORDERED: KETOROLAC TROMETHAMINE INJ/PF 30 MG/1 ML SDV IV ONE (16:24)
[2018-06-27] MEDS ORDERED: MORPHINE SULFATE 10 MG/ML INJ IV ONE (16:27)
--- NOTE | 2018-06-27 16:33 | ER Document Report ---
ED General - General Chief Complaint: Nausea/Vomiting Stated Complaint: ABDOMINAL PAIN, VOMITING Time Seen by Provider: 06/27/18 15:13 Primary Care Provider: ROBERTA CALL MD [ACTIVE STAFF] - Follow up as needed WOLF JOSEPH DO [Primary Care Provider] - Follow up as needed TRAVEL OUTSIDE OF THE [place] IN LAST 30 DAYS: No - HPI Notes: Patient is a 22-year-old female with a history of gallstones who presents to the emergency department complaining of intermittent right upper quadrant pain with associated nausea and vomiting that is worse with food intake. Patient states that she has had exacerbations of this frequently over the last couple months. Patient states that she is scheduled in mid July for a cholecystectomy to be performed by Dr. Call. Patient states that she has not had any emesis since this morning. She is urinating normally and having normal bowel movements. Patient states that she did start her menstrual cycle yesterday. No other concerns or complaints. No other surgical history to her abdomen. Denies any headache, fever, neck pain, URI, sore throat, chest pain, palpitations, syncope, cough, shortness of breath, wheeze, dyspnea, diarrhea, urinary retention, dysuria, hematuria, back pain, or rash. - Related Data Allergies/Adverse Reactions: No Known Allergies Allergy (Verified 06/27/18 14:12) Past Medical History - Social History Smoking Status: Never Smoker Chew tobacco use (# tins/day): No Drug Abuse: None Family History: Reviewed & Not Pertinent Patient has suicidal ideation: No Patient has homicidal ideation: No - Past Medical History Cardiac Medical History: Denies: Hx Coronary Artery Disease, Hx Heart Attack, Hx Hypertension Pulmonary Medical History: Denies: Hx Asthma, Hx Bronchitis, Hx COPD, Hx Pneumonia Neurological Medical History: Denies: Hx Cerebrovascular Accident, Hx Seizures Renal/ Medical History: Denies: Hx Peritoneal Dialysis Musculoskeletal Medical History: Denies Hx Arthritis Psychiatric Medical History: Reports: Hx Bipolar Disorder, Hx Depression Past Surgical History: Denies: Hx Hysterectomy - Immunizations Immunizations up to date: Yes Hx Diphtheria, Pertussis, Tetanus Vaccination: No Review of Systems - Review of Systems -: Yes All other systems reviewed and negative Physical Exam - Vital signs Vitals: Temp Pulse Resp BP Pulse Ox 98.6 F 79 16 132/86 H 100 06/27/18 14:17 06/27/18 14:17 06/27/18 14:17 06/27/18 14:17 06/27/18 14:17 - Notes Notes: PHYSICAL EXAMINATION: GENERAL: Well-appearing, well-nourished and in no acute distress. HEAD: Atraumatic, normocephalic. EYES: Pupils equal round and reactive to light, extraocular movements intact, sclera anicteric, conjunctiva are normal. ENT: Nares patent and without discharge. oropharynx clear without exudates. No tonsilar hypertrophy or erythema. Moist mucous membranes. NECK: Normal range of motion, supple without lymphadenopathy LUNGS: Breath sounds clear to auscultation bilaterally and equal. No wheezes rales or rhonchi. HEART: Regular rate and rhythm without murmurs, rubs, gallops. ABDOMEN: Soft, nondistended abdomen. No guarding, no rebound. + mild RUQ tenderness, le neg. Normal bowel sounds present. No CVA tenderness bilaterally. Musculoskeletal: FROM to passive/active. Strength 5+/5. Extremities: No cyanosis, clubbing, or edema b/l. Peripheral pulses 2+. Capillary refill less than 3 seconds. NEUROLOGICAL: Normal speech, normal gait. PSYCH: Normal mood, normal affect. SKIN: Warm, Dry, normal turgor, no rashes or lesions noted. Course - Re-evaluation Re-evalutation: 06/27/18 16:59 Patient is an afebrile, well-hydrated, 22-year-old female who presents emergency department with nausea and vomiting in association with right upper quadrant abdominal pain, suspect possible biliary colic. Vitals are acceptable without s ignificant tachycardia, tachypnea, or hypoxia. PE is otherwise unremarkable. Patient is nontoxic-appearing and is able to tolerate p.o. at this time without difficulties. She has not had any emesis throughout her stay. Her CBC shows no elevated white count. CMP within normal limits. Lipase unremarkable. UA and hCG negative. I did speak with Dr. Call who does not advise Emergent cholecystectomy at this time and she may call their office tomorrow morning in an attempt to bring forward her surgical date. Patient was given Toradol, morphine, Zofran, and fluids. No further labs or imaging warranted. Low suspicion/risk for acute appendicitis, bowel obstruction, acute cholecystitis, acute cholangitis, perforated diverticulitis, incarcerated hernia, pancreatitis, perforated ulcer, peritonitis, sepsis, pelvic inflammatory disease, ectopic , tubo-ovarian abscess, ovarian torsion, or other systemic emergent condition at this time. Patient is aware that her condition can change from initial presentation and she needs to monitor symptoms closely and seek medical attention if any acute changes. Conservative measures otherwise for symptoms. Recheck with your PCM in 2-3 days. Instruction per surgeon for advancing surgical date. Return to the ED with any worsening/concerning symptoms otherwise as reviewed in discharge. Patient is in agreement. - Vital Signs Vital signs: Temp Pulse Resp BP Pulse Ox 98.6 F 79 16 132/86 H 100 06/27/18 14:17 06/27/18 14:17 06/27/18 14:17 06/27/18 14:17 06/27/18 14:17 - Laboratory Result Diagrams: 06/27/18 15:31 06/27/18 15:31 Laboratory results interpreted by me: 06/27/18 06/27/18 15:31 15:31 Hgb 11.4 L Hct 35.6 L MCH 26.0 L RDW 15.8 H Urine Blood LARGE H Urine Urobilinogen 2.0 H Discharge - Discharge Clinical Impression: RUQ pain Nausea and vomiting Qualifiers: Vomiting type: unspecified Vomiting Intractability: non-intractable Qualified Code(s): R11.2 - Nausea with vomiting, unspecified Condition: Stable Disposition: HOME, SELF-CARE Instructions: Abdominal Pain ([facility]), Antinausea Medication ([facility]) Additional Instructions: Maintain adequate fluid and food intake [place] diet ([employer] Bananas, rice, apples, toast, etc Avoid fatty and greasy foods Zofran as needed tylenol/Motrin if needed Monitor for any worsening symptoms Make sure you are staying hydrated enough to urinate and have normal BM's Recheck with your PCM in 2-3 days Call your surgeon's office tomorrow to discuss advancing her surgical date--I did speak to your surgeon, Dr. Call who agrees with this plan Return to the ED with any worsening symptoms and/or development of fever, headache, chest pain, palpitations, syncope, shortness of breath, trouble breathing, abdominal pain, n/v/d, blood in stool/urine, weakness, or other worsening symptoms that are concerning to you. Prescriptions: Ondansetron [Zofran Odt 4 mg Tablet] 1 - 2 tab PO Q4H PRN #15 tab.rapdis PRN Reason: For Nausea/Vomiting Forms: Elevated Blood Pressure Referrals: WOLF JOSEPH DO [Primary Care Provider] - Follow up as needed ROBERTA CALL MD [ACTIVE STAFF] - Follow up as needed
[2018-06-27 17:51] VITALS: BP 125/82
== END 2018-06-27 17:51 | disposition home or self-care (01) ==
LOC: ER 14:11
DX: R10.11 Right upper quadrant pain (principal); R11.2 Nausea with vomiting, unspecified; R10.9 Unspecified abdominal pain
CPT/HCPCS: 99284; 96374; 96375; 36415; 83690; 85025; 81025; 80053; 81001; 76705; J1885; J2270; J2405; J7030

== ENCOUNTER 2018-07-22 05:26 | Day surgery (SDC) | payer MEDICAID ==
[~2018-07-22 05:26] MED LIST: ACETAMINOPHEN 325 MG TABLET PO PRN; CEFAZOLIN 1 GM/D5W RTU 1 GM/50 ML RTUPB IV ONE; CEFAZOLIN 1 GM/D5W RTU 1 GM/50 ML RTUPB IV PRN; METRONIDAZOLE 500 MG/NS RTU 500 MG/100 ML RTUPB IV ONE; METRONIDAZOLE 500 MG/NS RTU 500 MG/100 ML RTUPB IV PRN
[2018-07-22 06:17] LABS: ABSOLUTE LYMPHOCYTES (AUTO) 2.2 10^3/uL (0.5-4.7); ABSOLUTE MONOCYTES (AUTO) 0.4 10^3/uL (0.1-1.4); ABSOLUTE NEUT (AUTO) 2.3 10^3/uL (1.7-8.2); BASOPHILS % (AUTO) 0.4 % (0-2); EOSINOPHILS % (AUTO) 0.7 % (0-6); HEMATOCRIT 33.3 % (36.0-47.0); HEMOGLOBIN 10.7 g/dL (12.0-15.5); LYMPHOCYTES % (AUTO) 45.2 % (13-45); MEAN CORPUSCULAR HEMOGLOBIN 26.3 pg (27.0-33.4); MEAN CORPUSCULAR HGB CONC 32.1 g/dL (32.0-36.0); MEAN CORPUSCULAR VOLUME 82 fl (80-97); MONOCYTES % (AUTO) 7.7 % (3-13); PLATELET COUNT 305 10^3/uL (150-450); RED BLOOD COUNT 4.07 10^6/uL (3.72-5.28); RED CELL DISTRIBUTION WIDTH 15.9 % (11.5-14.0); TOTAL CELLS COUNTED % (AUTO) 100 %
[2018-07-22 06:36] LABS: ALANINE AMINOTRANSFERASE 15 U/L (9-52); ALBUMIN 3.7 g/dL (3.5-5.0); ALKALINE PHOSPHATASE 91 U/L (38-126); AMYLASE 79 U/L (30-110); ANION GAP 9 (5-19); ASPARTATE AMINO TRANSFERASE 14 U/L (14-36); BILIRUBIN,DIRECT 0.2 mg/dL (0.0-0.4); BILIRUBIN,TOTAL 0.2 mg/dL (0.2-1.3); BLOOD UREA NITROGEN 14 mg/dL (7-20); CALCIUM 9.3 mg/dL (8.4-10.2); CARBON DIOXIDE 24 mmol/L (22-30); CHLORIDE 106 mmol/L (98-107); GLUCOSE 94 mg/dL (75-110); POTASSIUM 4.3 mmol/L (3.6-5.0); SODIUM 139.3 mmol/L (137-145); TOTAL PROTEIN 7.2 g/dL (6.3-8.2)
[2018-07-22] MEDS ORDERED: KETOROLAC TROMETHAMINE 60 MG/2 ML SDV ONE (06:42)
[2018-07-22] MEDS ORDERED: DEXAMETHASONE SOD PHOSPHATE INJ 4 MG/1 ML VIAL ONE ×2 (06:43→10:31)
[2018-07-22] MEDS ORDERED: ACETAMINOPHEN 1,000 MG/100 ML RTUPB IV ONE (06:43)
[2018-07-22] MEDS ORDERED: MIDAZOLAM 2 MG/2 ML INJ ONE (06:43)
[2018-07-22] MEDS ORDERED: PROPOFOL INJ 200 MG/20 ML VIAL IV ONE (06:43)
[2018-07-22] MEDS ORDERED: ONDANSETRON HCL INJ/PF 4 MG/2 ML SDV ONE (06:43)
[2018-07-22] MEDS ORDERED: FENTANYL CITRATE INJ/PF 100 MCG/2 ML AMPUL ONE (06:43)
[2018-07-22] MEDS ORDERED: LIDOCAINE 0.5% INJ-PF (5 MG/ML) 50 ML SDV ONE (06:44)
[2018-07-22] MEDS ORDERED: BUPIVACAINE HCL 0.5%-EPI 1:200000 INJ/PF 30 ML VIAL ONE (07:06)
[2018-07-22] MEDS ORDERED: FAMOTIDINE INJ/PF 20 MG/2 ML SDV IV ONE (07:18)
[2018-07-22] MEDS ORDERED: MORPHINE SULFATE 10 MG/ML INJ IV PRN (07:53)
[2018-07-22] MEDS ORDERED: PROMETHAZINE HCL INJ 25 MG/1 ML VIAL IV PRN ×2 (07:53)
[2018-07-22] MEDS ORDERED: OXYCODONE-ACETAMINOPHEN 5-325 MG TABLET PO PRN ×3 (07:53→08:39)
[2018-07-22] MEDS ORDERED: FENTANYL CITRATE INJ/PF 100 MCG/2 ML AMPUL IV PRN ×3 (07:53)
[2018-07-22] MEDS ORDERED: DIPHENHYDRAMINE HCL 50 MG/ML VIAL IV PRN (07:53)
[2018-07-22] MEDS ORDERED: ONDANSETRON HCL INJ/PF 4 MG/2 ML SDV IV PRN (07:53)
[2018-07-22] MEDS ORDERED: MEPERIDINE HCL/PF INJ 25 MG/1 ML DISP.SYRIN IV PRN (07:53)
[2018-07-22] MEDS ORDERED: METOCLOPRAMIDE HCL INJ/PF 10 MG/2 ML SDV IV PRN (08:00)
[2018-07-22] MEDS: FENTANYL CITRATE INJ/PF 100 MCG/2 ML AMPUL ONE ×2 (08:37→08:42)
--- NOTE | 2018-07-22 08:37 | Operative Report ---
Nonrecallable Operative Report DATE OF SURGERY: 07/22/18 PREOPERATIVE DIAGNOSIS: cholelithiasis POSTOPERATIVE DIAGNOSIS: cholelithiasis OPERATION: laparoscopic cholecystectomy SURGEON: ROBERTA CALL ANESTHESIA: GA TISSUE REMOVED OR ALTERED: gallbladder COMPLICATIONS: none ESTIMATED BLOOD LOSS: 25cc INTRAOPERATIVE FINDINGS: see dictation PROCEDURE: see dictation
--- NOTE | 2018-07-22 08:39 | Discharge Summary ---
Discharge Summary (SDC) - Discharge Final Diagnosis: cholelithiasis Date of Surgery: 07/22/18 Condition: Good Referrals: WOLF JOSEPH DO [Primary Care Provider] - Discharge Diet: As Tolerated Discharge Activity: Activity As Tolerated, No Lifting Over 10 Pounds Report the Following to Your Physician Immediately: Shortness of Breath, Nausea, Vomiting, Increase in Pain, Unusual Bleeding - needs a f/u with me in 7-10 days
--- NOTE | 2018-07-22 09:04 | OPERATIVE REPORT E ---
Operative Report NAME: JAY MATHIAS : 1995 AGE: 23Y DATE OF SURGERY: 07/22/2018 ROOM: PREOPERATIVE DIAGNOSIS: Cholelithiasis. POSTOPERATIVE DIAGNOSIS: Cholelithiasis. OPERATIVE PROCEDURE: Laparoscopic cholecystectomy. SURGEON: ROBERTA CALL M.D. PROCEDURE: The patient was brought to the operating room in awake, alert, and stable condition, placed on the operating table in supine position, induced under general anesthesia and intubated. The abdomen was prepped and draped in the usual sterile manner for the procedure. After appropriate timeout, a Veress needle was then placed into the abdominal cavity through the umbilicus and the abdomen was insufflated with 6 L of CO2 gas. A supraumbilical 10 mm incision was made with a 15 blade and a 10 mm port placed into the abdominal cavity. Intra-abdominal visualization revealed no evidence of a Veress needle or trocar injury. Epigastric 5 mm port placed under direct vision, 2lateral 5 mm ports under direct vision. The gallbladder was identified and was placed on traction. The hepatoduodenal ligament was isolated and dissected. The cystic duct and cystic artery were both identified. Critical view was identified. Two Endoclips were placed on the stay side and one on the specimen side of the cystic duct and cystic artery. Both of these structures were divided and the gallbladder was dissected out of the liver bed with Bovie cautery, placed in an Endobag, and removed through the umbilical port site. The right upper quadrant was irrigated with normal saline, suctioned dry. Hemostasis was noted to be intact. The ports were removed, the pneumoperitoneum reduced. The umbilical port site was closed with 0 Vicryl in the fascia and all 4 skin incisions were closed with interpedicular 4-0 Biosyn. Steri-Strips completed the procedure. Estimated blood loss less than 25 mL. Sponge and needle counts correct x2. The patient was awakened in the operating room, extubated, transferred to recovery in stable condition. No complications. DICTATING PHYSICIAN: ROBERTA CALL M.D. [id number] PHY#: [id number] ID: [id number] JOB#: [id number] ACCT: [id number] cc:ROBERTA CALL M.D. >
[2018-07-22] MEDS ORDERED: OXYCODONE-ACETAMINOPHEN 5-325 MG TABLET ONE (10:03)
[2018-07-22] MEDS ORDERED: GLYCOPYRROLATE 1 MG/5 ML SYRINGE ONE (10:31)
[2018-07-22] MEDS ORDERED: SUCCINYLCHOLINE CHLORIDE INJ 200 MG/10 ML VIAL ONE (10:31)
[2018-07-22] MEDS ORDERED: VECURONIUM BROMIDE INJ 10 MG VIAL IV ONE (10:31)
[2018-07-22] MEDS ORDERED: NEOSTIGMINE METHYLSULFATE 10 MG/10 ML VIAL ONE (10:31)
[2018-07-22] MEDS ORDERED: LIDOCAINE 2% INJ-PF (20 MG/ML) 2 ML AMPUL ONE (10:31)
--- NOTE | 2018-07-22 10:49 | Discharge Summary ---
Discharge Summary (SDC) - Discharge Final Diagnosis: cholelithiasis Date of Surgery: 07/22/18 Condition: Good Forms: ASU Anesthesia D/C Instruction, Discharge POC-Surgical Service Referrals: ROBERTA CALL MD [ACTIVE STAFF] - 08/02/18 10:15 am (Follow up as scheduled) Discharge Activity: Activity As Tolerated Home Care Assistance: None Needed Report the Following to Your Physician Immediately: Shortness of Breath, Nausea, Vomiting, Increase in Pain, Fever over 101 Degrees, Unusual Bleeding
[2018-07-22 12:06] VITALS: BP 117/74
[2018-07-23] MEDS ORDERED: LACTATED RINGERS 1000 ML IV PRN (05:00)
== END 2018-07-22 11:20 | disposition home or self-care (01) ==
LOC: OROUT 05:26
PROVIDERS: ATTEND Surgery
DX: K80.10 Calculus of gallbladder with chronic cholecystitis without obstruction (principal); R73.03 Prediabetes; E66.9 Obesity, unspecified; G47.33 Obstructive sleep apnea (adult) (pediatric); D57.3 Sickle-cell trait; D64.9 Anemia, unspecified; Z68.41 Body mass index [BMI] 40.0-44.9, adult; Z01.818 Encounter for other preprocedural examination
CPT/HCPCS: 36415; 790; 80048; 80076; 82150; 84703; 85025; 86850; 86900; 86901; 86920; 88304; J0131; J0330; J0690; J1100; J1885; J2250; J2405; J2704; J3010; J3490; S0028

== ENCOUNTER 2018-07-22 23:45 | Emergency (ER) | payer MEDICAID ==
--- NOTE | 2018-07-23 03:10 | ER Document Report ---
ED General - General Chief Complaint: Post Surgical Bleeding Stated Complaint: WOUND CHECK Time Seen by Provider: 07/23/18 02:15 Primary Care Provider: WOLF JOSEPH DO [Primary Care Provider] - Follow up as needed Notes: Patient is a 23-year-old female status post cholecystectomy within the past 24 hours who presents with concerns of bleeding from her periumbilical wound. States that she noticed that there was bleeding and saturation of the overlying Steri-Strips. This prompted her to come to the emergency department. Has not contacted her surgeon who performed the procedure. Notes a mild, throbbing, aching discomfort to the area. Touching the area worsens the pain. Nothing improves the pain. All other surgical incisions are healing well per her report. She has not had fever or constitutional symptoms. No trauma to the area. No additional concerns. TRAVEL OUTSIDE OF THE [place] IN LAST 30 DAYS: No - Related Data Allergies/Adverse Reactions: No Known Allergies Allergy (Verified 07/22/18 05:57) Past Medical History - General Information source: Patient - Social History Smoking Status: Never Smoker Frequency of alcohol use: None Drug Abuse: None Lives with: Family Family History: Reviewed & Not Pertinent - Past Medical History Cardiac Medical History: Denies: Hx Coronary Artery Disease, Hx Heart Attack, Hx Hypertension Pulmonary Medical History: Denies: Hx Asthma, Hx Bronchitis, Hx COPD, Hx Pneumonia Neurological Medical History: Denies: Hx Cerebrovascular Accident, Hx Seizures Renal/ Medical History: Denies: Hx Peritoneal Dialysis Musculoskeletal Medical History: Denies Hx Arthritis Psychiatric Medical History: Reports: Hx Bipolar Disorder, Hx Depression Past Surgical History: Denies: Hx Hysterectomy - Immunizations Immunizations up to date: Yes Hx Diphtheria, Pertussis, Tetanus Vaccination: Yes Review of Systems - Review of Systems Notes: Constitutional: Negative for fever. HENT: Negative for sore throat. Eyes: Negative for visual changes. Cardiovascular: Negative for chest pain. Respiratory: Negative for shortness of breath. Gastrointestinal: Negative for abdominal pain, vomiting or diarrhea. Genitourinary: Negative for dysuria. Musculoskeletal: Negative for back pain. Skin: Positive for bleeding from postsurgical site Neurological: Negative for headaches, weakness or numbness. 10 point ROS negative except as marked above and in HPI. Physical Exam - Vital signs Vitals: Temp Pulse Resp BP Pulse Ox 98.2 F 65 18 131/81 H 100 07/23/18 00:06 07/23/18 00:06 07/23/18 00:06 07/23/18 00:06 07/23/18 00:06 Interpretation: Normal Notes: PHYSICAL EXAMINATION: GENERAL: Well-appearing, well-nourished and in no acute distress. HEAD: Atraumatic, normocephalic. EYES: Pupils equal round and reactive to light, extraocular movements intact, sclera anicteric, conjunctiva are normal. ENT: nares patent, oropharynx clear without exudates. Moist mucous membranes. NECK: Normal range of motion, supple without lymphadenopathy LUNGS: Breath sounds clear to auscultation bilaterally and equal. No wheezes rales or rhonchi. HEART: Regular rate and rhythm without murmurs ABDOMEN: Soft, nontender, normoactive bowel sounds. No guarding, no rebound. No masses appreciated. EXTREMITIES: Normal range of motion, no pitting or edema. No cyanosis. NEUROLOGICAL: No focal neurological deficits. Moves all extremities spontaneously and on command. PSYCH: Normal mood, normal affect. SKIN: Warm, Dry, normal turgor, small wound opening to the periumbilical incision with scant dried blood around the area, no active bleeding Course - Re-evaluation Re-evalutation: 07/23/18 03:08 Patient presents with concerns of her umbilical incisional line opening with a small amount of bleeding after having a cholecystectomy 24 hours ago. States trips pulled down there is very minimal wound opening and the subcutaneous tissue it remains closed. Abdominal exam is otherwise completely benign. The Steri-Strips were replaced, patient advised that this appears to be a very small amount of wound opening, minimal concern at this point and that she needs to follow-up with her surgeon tomorrow. States agreement and understanding. No evidence of infection or additional concern at this time on exam. - Vital Signs Vital signs: Temp Pulse Resp BP Pulse Ox 98.0 F 70 16 130/76 H 99 07/23/18 03:15 07/23/18 03:15 07/23/18 03:15 07/23/18 03:15 07/23/18 03:15 Discharge - Discharge Clinical Impression: Postoperative wound breakdown Qualifiers: Encounter type: initial encounter Qualified Code(s): T81.31XA - Disruption of external operation (surgical) wound, not elsewhere classified, initial encounter Condition: Good Disposition: HOME, SELF-CARE Additional Instructions: There is a very small opening in the wound around your bellybutton. This is minor and not of significant concern but I would like you to contact your surgeon tomorrow and inform him of this concern. Return if you have worsening opening, increasing bleeding, pain, fever or any other symptoms that are worrisome to you. Referrals: WOLF JOSEPH, DO [Primary Care Provider] - Follow up as needed
[2018-07-23 03:20] VITALS: BP 130/76
== END 2018-07-23 03:15 | disposition home or self-care (01) ==
LOC: ER 23:45
DX: T81.31XA Disruption of external operation (surgical) wound, not elsewhere classified, initial encounter (principal); Z90.49 Acquired absence of other specified parts of digestive tract
CPT/HCPCS: 99283